=== PATIENT | male | born 1990 | race Caucasian/White ===

== ENCOUNTER 2019-05-22 11:12 | Observation (INO) ==
[2019-05-22 12:50] LABS: Basophils # 0.1 10*3/uL (0.0-0.2); Basophils % 0.8 % (0.0-0.8); Eosinophils # 0.1 10*3/uL (0.0-0.87); Eosinophils % 1.8 % (0.00-10.9); Hematocrit 45.7 VOL% (42.0-52.0); Hemoglobin 15.5 GM/DL (14.0-18.0); Immature Granulocytes % 0.4 %; Immature Granulocytes Absolute 0.03 #; Lymphocytes # 1.6 10*3/uL (1.4-4.0); Lymphocytes % 19.9 % (21.2-54.2); Mean Corpuscular HGB Conc 33.9 GM/DL (32-36); Mean Platelet Volume 9.5 FL (9.6-12.0); Monocytes % 10.9 % (1.7-12.7); Neutrophils % 66.2 % (38.7-73.9); Platelet Count 245 T/CUMM (130-400); Red Blood Count 5.02 MC/CUMM (3.8-5.5); Red Cell Distribution Width 12.4 % (9.3-17.3); White Blood Count 7.8 T/CUMM (4-12)
[2019-05-22 13:02] LABS: Alanine Aminotransferase 33 U/L (16-61); Albumin 3.5 G/DL (3.4-5.0); Alkaline Phosphatase 85 U/L (45-117); Aspartate Amino Transferase 18 U/L (0-37); Bilirubin,Total < 0.39 MG/DL (0.2-1.0); Blood Urea Nitrogen 10 MG/DL (7-18); Calcium 8.7 MG/DL (8.5-10.1); Estimated Glom Filtration Rate 131 ML/MIN; Glucose 81 MG/DL (74-106); INR 0.9; Osmolality,Calculated 274.5 MOS/KG (273-304); Partial Thromboplastin Time 28.5 SECS (20.8-36.0); Total Protein 7.7 G/DL (6.4-8.3)
[2019-05-22] MEDS ORDERED: ONDANSETRON 4 MG/2 ML VIAL IV PRN (16:11)
[2019-05-22] MEDS: ALBUTEROL/IPRATROPIUM 3 ML NEB RESP TX SCH (19:41)
[2019-05-22 20:17] LABS: Hematocrit 43.1 VOL% (42.0-52.0); Hemoglobin 14.5 GM/DL (14.0-18.0)
[2019-05-22] MEDS: PANTOPRAZOLE 40 MG VIAL IV SCH (20:44)
[2019-05-23] MEDS: ALBUTEROL/IPRATROPIUM 3 ML NEB RESP TX SCH ×3 (00:24→13:40)
[2019-05-23 08:14] LABS: Hematocrit 42.5 VOL% (42.0-52.0); Hemoglobin 14.5 GM/DL (14.0-18.0)
[2019-05-23] MEDS ORDERED: ACETAMINOPHEN 325 MG TABLET PO PRN (09:43)
[2019-05-23] MEDS: PANTOPRAZOLE 40 MG VIAL IV SCH (09:59)
[2019-05-23 11:49] VITALS: BP 131/76
== END 2019-05-23 15:00 | disposition home or self-care (01) ==
LOC: N.EDINP 11:12 → N.ED 11:12 → SUATTDRO 16:11 → N.2W 16:46
PROVIDERS: ADMIT Hospitalist; ATTEND Internal Medicine Nephrology